=== PATIENT | male | born 1950 | race Caucasian/White ===

== ENCOUNTER → 2024-10-11 09:15 | Outpatient (REF) | payer MEDICARE, SELFPAY ==
--- NOTE | 2024-10-11 10:38 | CARDSERVLU ---
Echocardiogram with Lumason completed after protocol screening completed. Allergies verified.
Patent IV site: __left AC___
IV site flushed with 0.9% NaCl pre and post administration.
Diluted bolus method utilized to enhance visualization of ventricular coto.
Total volume given: __2.0__ mL
Patient tolerated all procedures well without complications.
#22 kirill placed left AC. Lumason given. INT d/c'd. pressure held. no bleeding noted.
== END ==
LOC: RCS 09:15
PROVIDERS: ATTENDING PHYSICIAN Internal Medicine; FAMILY PHYSICIAN Family Medicine
DX: I77.810 Thoracic aortic ectasia (principal); I35.1 Nonrheumatic aortic (valve) insufficiency
CPT/HCPCS: 93307; Q9957